=== PATIENT | female | born 1950 | race Caucasian/White ===

== ENCOUNTER 2023-03-27 15:32 | Day surgery (SDC) | payer MEDICARE ==
[2023-03-27] MEDS ORDERED: LIDOCAINE HCL 1% 50 MG/5 ML VL PF IJ ONE (15:33)
[2023-03-27] MEDS ORDERED: Depo-Medrol 40 MG/ML IM ONE (15:33)
[2023-03-27] MEDS ORDERED: BUPIVACAINE 0.5% VIAL IJ ONE (15:33)
--- NOTE | 2023-03-27 19:32 | XRAY ---
Indication: Right knee injection. Intraoperative fluoroscopy provided for 11 seconds. Single digital spot image submitted for interpretation demonstrates needle tip projecting over the right femur intercondylar notch. Small amount of contrast injected for needle tip placement. Correlate with intraoperative findings/report.
--- NOTE | 2023-03-28 14:11 | XRAY ---
11 seconds of fluoroscopy was used in surgery for a right intra-articular knee and pes anserine bursa injection.
== END 2023-03-27 19:03 | disposition home or self-care (01) ==
LOC: SDC-PAIN 15:32
PROVIDERS: ATTEND Psychiatry & Neurology Pain Medicine
DX: M17.11 Unilateral primary osteoarthritis, right knee (principal); E11.9 Type 2 diabetes mellitus without complications; Z79.899 Other long term (current) drug therapy
CPT/HCPCS: 20610; 73560; 77002; 82947; J1030; J2001; Q9966

== ENCOUNTER 2024-02-06 08:26 | Day surgery (SDC) | payer MEDICARE | END 2024-02-06 08:45 | disposition home or self-care (01) | LOC: SDC-PAIN 08:26 | PROVIDERS: ATTEND Psychiatry & Neurology Pain Medicine | DX: Z53.09 Procedure and treatment not carried out because of other contraindication (principal); E11.65 Type 2 diabetes mellitus with hyperglycemia; M17.11 Unilateral primary osteoarthritis, right knee | CPT/HCPCS: 82947 ==

== ENCOUNTER 2024-02-26 15:17 | Day surgery (SDC) | payer MEDICARE ==
[2024-02-26] MEDS ORDERED: LIDOCAINE HCL 1% AMPUL 5 ML IJ ONE (15:18)
[2024-02-26] MEDS ORDERED: BUPIVACAINE 0.5% VIAL IJ ONE (15:18)
[2024-02-26] MEDS ORDERED: Depo-Medrol 40 MG/ML IM ONE (15:18)
--- NOTE | 2024-02-26 19:05 | XRAY ---
Indication: Right knee injection. Intraoperative fluoroscopy provided for 5 seconds. Single digital spot image submitted for interpretation demonstrates needle tip projecting over right femur intercondylar notch. Small amount of contrast injected for needle tip placement. Correlate with intraoperative findings/report.
--- NOTE | 2024-02-27 09:30 | XRAY ---
5 seconds of fluoroscopy was used in surgery for a right intra-articular knee and pes anserine bursa injection.
== END 2024-02-26 17:52 | disposition home or self-care (01) ==
LOC: SDC-PAIN 15:17
PROVIDERS: ATTEND Psychiatry & Neurology Pain Medicine
DX: M17.11 Unilateral primary osteoarthritis, right knee (principal); E11.9 Type 2 diabetes mellitus without complications; M70.51 Other bursitis of knee, right knee
CPT/HCPCS: 20610; 73560; 77002; 82947; Q9966